=== PATIENT | female | born 1975 | race Caucasian/White ===

== ENCOUNTER 2016-05-29 22:50 | Emergency (ER) | payer OTHER ==
[~2016-05-29] VITALS: Ht 165.1 cm; Wt 61.2 kg
[2016-05-29] MEDS: FAMOTIDINE IV BAG 20 MG in APPROPRIATE DILUENT 1 EA IV ONE (23:25)
[2016-05-29] MEDS: IPRATROPIUM 0.5MG/ALBUTEROL 2.5MG INH SOL UD 3ML (DUONEB)(J7620) NEB ONE (23:41)
[2016-05-30] MEDS ORDERED: EPIP0.3I2 IJ (01:13)
[2016-05-30 01:42] VITALS: BP 126/62
== END 2016-05-30 01:56 | disposition home or self-care (01) ==
LOC: EDBD 22:50 → M ED 05-30 00:22
DX: T78.40XA Allergy, unspecified, initial encounter (principal); X58.XXXA Exposure to other specified factors, initial encounter; Y92.89 Other specified places as the place of occurrence of the external cause; Y93.89 Activity, other specified; Y99.8 Other external cause status; Z91.040 Latex allergy status